=== PATIENT | female | born 1995 | race Asian ===

== ENCOUNTER 2017-08-25 07:45 | Day surgery (SDC) | payer BC ==
[~2017-08-25 07:45] MED LIST: Buffered Lidocaine 0.9% SYRIN* 5 ML/SYR SYRINGE INTRADERM ONE; Dexamethasone IV* 4 MG/ML 1 ML (4 MG) IV SLOW PU ONE; Famotidine IV* 10 MG/ML 2 ML (20 mg) IV ONE
[2017-08-25] MEDS ORDERED: Famotidine IV* 10 MG/ML 2 ML (20 mg) ONE (08:02)
[2017-08-25] MEDS ORDERED: Buffered Lidocaine 0.9% SYRIN* 5 ML/SYR SYRINGE ONE (08:02)
[2017-08-25] MEDS ORDERED: Dexamethasone IV* 4 MG/ML 1 ML (4 MG) ONE (08:02)
[2017-08-25] MEDS ORDERED: fentaNYL* 50 MCG/ML 2 ML VIAL (100 MCG VIAL) IV PRN (09:07)
[2017-08-25] MEDS ORDERED: oxyCODONE/Acetamin 5/325 MG* TAB PO PRN (09:07)
[2017-08-25] MEDS ORDERED: PROCHLORPERAZINE INJ 5 MG/ML 2 ML VIAL IV PRN (09:07)
[2017-08-25] MEDS ORDERED: HYDROcodone/ACETAMIN 5-325 MG* 1 TAB PO PRN (09:07)
[2017-08-25] MEDS ORDERED: Mivacurium Chloride* 20 MG/10 ML VIAL IV ONE (09:22)
[2017-08-25] MEDS ORDERED: fentaNYL* 50 MCG/ML 2 ML VIAL (100 MCG VIAL) ONE (09:22)
[2017-08-25] MEDS ORDERED: Lidocaine 2% PF * 5 ML VIAL ONE (09:22)
[2017-08-25] MEDS ORDERED: Propofol* 10 MG/ML 20 ML BTL IV PUSH ONE (09:22)
[2017-08-25] MEDS ORDERED: Ondansetron INJ* 2 MG/ML VIAL ONE (09:32)
[2017-08-25] MEDS ORDERED: Ibuprofen PED LIQ* 100 MG/5 ML UDC ONE (10:17)
[2017-08-25 11:28] VITALS: BP 116/81
--- NOTE | 2017-08-25 13:18 | OP ---
OPERATIVE NOTE: DATE OF OPERATION: 08/25/17 DATE OF : 89 SURGEON: Lj Francois M.D. PRE-OP DIAGNOSIS: Chronic tonsillitis. POST-OP DIAGNOSIS: Chronic tonsillitis. OPERATIVE PROCEDURE: Tonsillectomy. BRIEF HISTORY: This 21-year-old female with recurring tonsillitis, frequent tonsillar stones, electe d for surgical therapy. DESCRIPTION OF PROCEDURE: The patient was taken to the operating room, general anesthetic was given, patient intubated. Tongue, mandible, and soft palate retracted. Coblator was used to remove the to nsillar tissue, and once hemostasis was obtained, the patient awakened, extubated[facility] Instrument and sponge counts correct. Blood loss minimal. [id number]/[facility] #: [id number]
== END 2017-08-25 11:30 | disposition home or self-care (01) ==
LOC: OR 07:45
PROVIDERS: ATTEND Otolaryngology
DX: J35.01 Chronic tonsillitis (principal); J45.909 Unspecified asthma, uncomplicated
CPT/HCPCS: 81025; 88304; J1100; J2405; J2704; J3010